=== PATIENT | female | born 1985 | race Caucasian/White ===

== ENCOUNTER 2023-07-31 21:32 | Emergency (ER) | payer BC ==
[2023-07-31] MEDS ORDERED: Acetaminophen 500 MG TAB ONE (21:42)
[2023-07-31] MEDS ORDERED: Ibuprofen 800 MG TAB ONE (21:42)
== END 2023-07-31 22:02 | disposition home or self-care (01) ==
LOC: BURERS 21:32
DX: S50.01XA Contusion of right elbow, initial encounter (principal); F17.290 Nicotine dependence, other tobacco product, uncomplicated; W23.0XXA Caught, crushed, jammed, or pinched between moving objects, initial encounter